=== PATIENT | male | born 1960 | race Caucasian/White ===

== ENCOUNTER 2022-11-19 01:06 | Day surgery (SDC) | payer BC, SELFPAY ==
[2022-11-16 15:00] VITALS: BMI 35.9
[2022-11-19] VITALS (15 sets, daily range): BP systolic 109–188; BP diastolic 68–91; PULSE 58–86; RESP 13–24; TEMP 36.6; O2SAT 96–99; BMI 35.9
[2022-11-19 07:41] LABS: Basophils Percent Auto 0.3 % (0.2-1.2); Eosinophils Absolute Auto 0.1 K/mm3 (0-0.3); Eosinophils Percent Auto 1.8 % (0-4.4); Hematocrit 44.3 % (42.0-52.0); Hemoglobin 15.4 g/dL (14.0-18.0); Immature Granulocyte Absolute 0.03 K/mm3 (0.00-0.031); Immature Granulocyte Percent A 0.4 % (0-0.5); Lymphocytes Absolute Auto 2.82 K/mm3 (0.9-3.2); Lymphocytes Percent Auto 41.2 % (18.3-44.2); Mean Corpuscular HGB Conc 34.8 g/dl (32-36); Mean Corpuscular Hemoglobin 30.2 pg (26-34); Mean Corpuscular Volume 86.9 fl (80-100); Monocytes Absolute Auto 0.7 K/mm3 (0.1-0.6); Monocytes Percent Auto 10.1 % (2.6-8.5); Neutrophils Absolute Auto 3.2 K/mm3 (1.3-6.7); Neutrophils Percent Auto 46.2 % (45.5-73.1); Platelet Count Result 174 k/mm3 (150-375); Red Cell Distribution Width 12.7 % (11.5-14.5); White Blood Count 6.8 K/mm3 (4.5-10.0)
[2022-11-19 07:54] LABS: Anion Gap 8 mmol/L (8-16); Blood Urea Nitrogen 17 mg/dL (9-20); Calcium 8.7 mg/dL (8.4-10.2); Carbon Dioxide 27 mmol/L (22-30); Chloride 103 mmol/L (98-107); Estimated CRCL calculation 133 ml/min; Estimated Glomerular Filt Rate > 60; Glucose 193 mg/dL (65-110); Potassium 3.8 mmol/L (3.4-5.0); Sodium 138 mmol/L (137-145)
--- NOTE | 2022-11-19 08:47 | WPDMODSED ---
Moderate Sedation Note-Pt Data Patient Data Diagnosis: exertional chest pain abnormal stress echo Present Complaint: 62-year-old with recent onset exertional dyspnea with chest pain Procedure to be performed/Plan: left heart catheterization Allergies Allergy/AdvReac Type Severity Reaction Status Date / Time No Known Allergies Allergy Mild Verified 11/19/22 07:23 Home Medications Medication Instructions Recorded Confirmed Type fish oil-dha-epa 1,200 mg-144 1 cap PO DAILY 11/16/22 11/16/22 History mg-216 mg capsule tirzepatide 2.5 mg/0.5 mL 2.5 mg subcut WEEKLY 11/16/22 11/16/22 History subcutaneous pen injector (Mounjaro) Current Medications: Active Medications Sodium Chloride (Normal Saline Iv) 500 mls @ 100 mls/hr IV CONT .Q5H [facility] Sedation/Anesthesia: No previous sedation/anesthesia problems (including family history). [facility] Social History Social History Smoking status: Never smoker Second hand tobacco smoke exposure: No Alcohol intake: current Alcohol use details: rarely, 12 pack a year Substance use: never Substance use type: does not use Living arrangements: with family Spiritual care concerns: No Mod Sed Physical Exam Physical Exam Pre Procedural Exam: Normal: Throat, Airway, Lungs, Heart Size, Heart Rate, Heart Rhythm, Neuro Exam and Extremities and Variation: Appearance ( overweight white male no apparent distress) Hours since solid foods: 12 Hours since liquid intake: 12 Mallampati Classification: class II Internal Medicine - PN: Obj Da Vital Signs Vital Signs: Vital Signs - 24 hr 11/19/22 07:30 Temperature 36.6 C Pulse Rate 62 Respiratory Rate 16 Blood Pressure 143/84 H Pulse Oximetry 97 Oxygen Delivery Room Air Meds/Results Medications: Active Medications Generic Name Dose Route Start Last Admin Trade Name Freq PRN Reason Stop Dose Admin Sodium Chloride 500 mls @ 100 mls/hr 11/19/22 07:00 Normal Saline Iv IV CONT .Q5H [facility] 11/19/22 07:26 11/19/22 07:26 Labs: Laboratory Results - last 24 hr 11/19/22 07:26 WBC 6.8 RBC 5.10 Hgb 15.4 Hct 44.3 MCV 86.9 MCH 30.2 MCHC 34.8 RDW 12.7 Plt Count 174 MPV 10.0 Immature Gran % (Auto) 0.4 Neut % (Auto) 46.2 Lymph % (Auto) 41.2 Fergus % (Auto) 10.1 H Eos % (Auto) 1.8 Baso % (Auto) 0.3 Lymph # (Auto) 2.82 Fergus # (Auto) 0.7 H Eos # (Auto) 0.1 Baso # (Auto) 0.0 Abs Immat Gran (auto) 0.03 Absolute Neuts (auto) 3.2 Absolute Nucleated RBC 0.0 Nucleated RBC % 0.0 Sodium 138 Potassium 3.8 Chloride 103 Carbon Dioxide 27 Anion Gap 8 BUN 17 Creatinine 0.60 L Estim Creat Clear Calc 133 Estimated GFR > 60 Glucose 193 H Calcium 8.7 ASA Classification/Sedation ASA Classification/Sedation ASA Class: III Emergent: No Risks: Risks, benefits and alternatives explained and patient/family accepted plan for sedation. Patient re-evaluated immediately prior to sedation.
--- NOTE | 2022-11-19 09:20 | WPDCARDPROC ---
Cardiac Cath Procedure Note Date of procedure:: 11/19/22 Performing physician:: Amrik Goss MD Indication:: recent onset exertional symptoms compatible with angina Brief clinical history:: this is a 62-year-old man without previous known coronary artery disease. He has been experiencing exertional chest pain with dyspnea for the last several weeks. Exercise stress test echo with echo in the office was significantly abnormal indicating anterior apical and apical inferior ischemia. For this reason an angiogram has been recommended. Procedure Procedure performed:: Left ventriculogram coronary angiogram Sedation/Medication given:: fentanyl 50 mg Versed 2 mg case start time 8:51 a.m. case end time 9:13 a.m. sedation provided by Marni Andrade RN, trained observer Access site:: right femoral artery Estimated blood loss:: 20 cc Procedure note:: patient was brought to the cardiac catheterization lab in the postabsorptive state where the right femoral triangle was prepped and draped in the normal fashion. Anesthesia was provided with 1% lidocaine infiltrated locally. Using the modified Seldinger technique the femoral artery was punctured and a 5 Uzbek vascular sheath placed. After this a 5 Uzbek angled pigtail catheter was used to measure left-sided hemodynamics and to inject LV g in the EUCEDA projection. Following this the right coronary artery was injected using a standard 5 Uzbek JR4 catheter. The left coronary artery was engaged and injected using a standard 5 Uzbek FL4 catheter. The cineangiograms were then reviewed and the case was terminated. The patient was taken to the holding area for manual sheath removal. The procedure was well tolerated and uncomplicated. There was no sign of groin hematoma when he left the cardiac catheterization lab. Findings:: Hemodynamics: Central aortic pressure is 110 over 56 left ventricle 110/2 end-diastolic pressure 16 there is no gradient pullback across the aortic valve. Left ventricle: The LV exhibits concentric hypertrophy and is normal in dimension. Contractility is well preserved in all segments the ejection fraction is 70% by visual estimation the left main coronary artery is medium in caliber does have some calcification but no significant stenosis is seen. The left anterior descending is a moderate the caliber artery extending down to the apex. The proximal 3rd of the LAD is significantly calcified. There is eccentric high-grade stenosis just past the ostium of the LAD which is either milder angiographically as much as 80% stenosis. The vessel again is significantly calcified in this segment. Further down there is a long moderate segment of 60-70% stenosis. In this segment the major diagonal is arising and has a ostial 90% lesion. The circumflex is a moderate caliber artery giving rise to the marginal branches. The 1st OM branch takes off very high as a ramus intermedius. This vessel has moderate diffuse disease in the proximal and midportions with about 70-80% stenosis. At the very distal portion of this 1st OM/ ramus is totally occluded. The 2nd OM branch is a bifurcating vessel in the midportion of the circumflex this 2nd OM is totally occluded. There is a posterior circumflex branch following the 2nd OM that has no significant disease. The right coronary artery is very large in caliber somewhat ectatic in appearance and dominant to the posterior circulation. The right coronary artery proper has mild diffuse luminal irregularities but no functionally significant disease. The RPL branches have mild diffuse disease Representing about 50-60% stenosis but no flow-limiting lesions are seen. Conclusion:: 1. right coronary dominant circulation with multivessel coronary artery disease as described above 2. lesion causing the patient's symptoms appear to be near ostial stenosis of significant calcified LAD also with moderate disease in
--- NOTE | 2022-11-19 09:47 | SUR.PHASEII ---
0945 Sheath removed and manual pressure applied.
[2022-11-19] MEDS: ACETAMINOPHEN 325 MG TABLET 650 MG PO (11:23)
== END 2022-11-19 15:05 | disposition home or self-care (01) ==
PROVIDERS: Visit Provider Specialist
PROC: 4A023N7 Measurement of Cardiac Sampling and Pressure, Left Heart, Percutaneous Approach (ICD-10-PCS; CPT 93452; principal; 2022-11-19 08:30)
DX: I25.10 Atherosclerotic heart disease of native coronary artery without angina pectoris (principal); R93.1 Abnormal findings on diagnostic imaging of heart and coronary circulation; R07.89 Other chest pain; Z79.85 Long-term (current) use of injectable non-insulin antidiabetic drugs
CPT/HCPCS: 36415; 80048; 85025; 93458; A9270; C1887; C1894; J1644; J2250; J3010; J7040

== ENCOUNTER 2022-11-21 09:42 | Emergency (ER) | payer BC, SELFPAY ==
[2022-11-21] VITALS (9 sets, daily range): BP systolic 113–156; BP diastolic 67–97; PULSE 54–62; RESP 14–19; TEMP 36.5–36.6; O2SAT 96–99
--- NOTE | ~2022-11-21 | XR_ITS ---
Clinical Indication: Chest pressure PA and lateral views of the chest: Comparison: 06/04/2006 Findings: The lungs are clear, without evidence of focal consolidation or pleural effusion. Cardiome diastinal silhouette is within normal limits. Bones and soft tissues are unremarkable. Impression: Normal chest. Reviewed, dictated and finalized at location . Impression: Normal chest.
--- NOTE | 2022-11-21 09:50 | ECG_ITS ---
Measurements Intervals [place] Rate: 55 P: 38 HI: 216 QRS: 11 QRSD: 97 T: 28 QT: 407 QTc: 392 Interpretive Statements SINUS BRADYCARDIA WITH FIRST DEGREE AV BLOCK BORDERLINE ECG NO PREVIOUS ECG AVAILABLE FOR COMPARISON Electronically Signed On 11-21-2022 11:50:55 CDT by Garry Coreas D.O.
[2022-11-21] MEDS: NITROGLYCERIN SL 0.4 MG TABLET SUBLINGUAL (10:17)
[2022-11-21] MEDS: ASPIRIN 81 MG CHEWABLE TABLET 324 MG PO (10:18)
[2022-11-21 10:21] LABS: Basophils Percent Auto 0.5 % (0.2-1.2); Eosinophils Absolute Auto 0.2 K/mm3 (0-0.3); Eosinophils Percent Auto 1.9 % (0-4.4); Hematocrit 44.9 % (42.0-52.0); Hemoglobin 15.7 g/dL (14.0-18.0); Immature Granulocyte Absolute 0.02 K/mm3 (0.00-0.031); Immature Granulocyte Percent A 0.3 % (0-0.5); Lymphocytes Absolute Auto 3.02 K/mm3 (0.9-3.2); Lymphocytes Percent Auto 39.2 % (18.3-44.2); Mean Corpuscular Hemoglobin 30.3 pg (26-34); Mean Corpuscular Volume 86.5 fl (80-100); Mean Platelet Volume 9.7 fl (7.4-10.4); Monocytes Absolute Auto 0.7 K/mm3 (0.1-0.6); Monocytes Percent Auto 8.4 % (2.6-8.5); Neutrophils Absolute Auto 3.8 K/mm3 (1.3-6.7); Neutrophils Percent Auto 49.7 % (45.5-73.1); Platelet Count Result 179 k/mm3 (150-375); Red Blood Count 5.19 M/mm3 (4.6-6.20); Red Cell Distribution Width 12.6 % (11.5-14.5); White Blood Count 7.7 K/mm3 (4.5-10.0)
[2022-11-21 10:31] LABS: Partial Thromboplastin Time 23.7 SECONDS (22.3-36.8); Prothrombin Time 13.6 Seconds (11.1-14.7)
[2022-11-21 10:43] LABS: Troponin I < 0.012 ng/mL (0.000-0.034)
[2022-11-21 11:10] LABS: Alanine Aminotransferase 34 U/L (6-50); Albumin Level 4.5 g/dL (3.5-5.1); Alkaline Phosphatase 70 U/L (38-126); Aspartate Amino Transferase 30 U/L (17-59); Bilirubin,Total 0.8 mg/dL (0.2-1.3); Blood Urea Nitrogen 17 mg/dL (9-20); Calcium 8.8 mg/dL (8.4-10.2); Carbon Dioxide 28 mmol/L (22-30); Estimated CRCL calculation 133 ml/min; Estimated Glomerular Filt Rate > 60; Glucose 170 mg/dL (65-110); Lipase 81 U/L (23-300)
[2022-11-21 11:11] LABS: Anion Gap 6 mmol/L (8-16); Chloride 102 mmol/L (98-107); Potassium 4.1 mmol/L (3.4-5.0); Sodium 136 mmol/L (137-145)
--- NOTE | 2022-11-21 11:43 | ED.CHESTPAIN ---
HPI - Chest Pain General Chief Complaint: Chest Pain Stated Complaint: chest pressure Time Seen by Provider: 11/21/22 10:00 History of Present Illness HPI narrative: Patient is a 62-year-old male who presents ER with chest pain. Describes as pressure in the center of his chest. Reports 7/10 this morning at 4:30 AM when it occurred. It is still 4/10 in intensity. No radiation to the shoulder/neck. Patient underwent stress testing recently that was grossly abnormal. When he had a left heart cath performed last week it showed extensive multivessel disease. Patient is currently scheduled to see cardiothoracic surgery at [facility] for further intervention. Patient cannot describe any aggravating or alleviating factors. He took a baby aspirin at home but received 3 additional baby aspirin's here. Related Data Home Medications Medication Instructions Recorded Confirmed fish oil-dha-epa 1,200 mg-144 1 cap PO DAILY 11/16/22 11/16/22 mg-216 mg capsule tirzepatide 2.5 mg/0.5 mL 2.5 mg subcut WEEKLY 11/16/22 11/16/22 subcutaneous pen injector (Mounjaro) Allergies Allergy/AdvReac Type Severity Reaction Status Date / Time No Known Allergies Allergy Mild Verified 11/21/22 10:09 Review of Systems Review of Systems: All systems reviewed & are unremarkable except as noted in HPI and below Constitutional: Constitutional: Denies chills, Denies fatigue and Denies fever(s) Cardiovascular: Cardiovascular: Reports chest pain, Denies rapid heart rate and Denies radiating jaw, neck or arm pain Respiratory: Respiratory: Denies cough, Denies dyspnea and Denies wheezing Gastrointestinal: Gastrointestinal: Denies abdominal pain, Denies nausea and Denies vomiting Musculoskeletal: Musculoskeletal: Reports no additional musculoskeletal complaints Integumentary/Breasts: Skin/Breast: Reports system reviewed and no additional complaints, except as docu Neurologic: Reports system reviewed and no additional complaints, except as documented PMFSH Past Medical History Medical History (Updated 11/21/22 @ 15:56 by Louie Cardona MD) History of left heart catheterization Hyperlipidemia Hypertension Surgical History Surgical History (Updated 11/21/22 @ 11:47 by Louie Cardona MD) No pertinent past surgical history Social History Social History Smoking status: Never smoker Second hand tobacco smoke exposure: No Alcohol intake: current Alcohol use details: rarely, 12 pack a year Substance use: never Substance use type: does not use Living arrangements: with family Spiritual care concerns: No Exam Narrative: GENERAL: Well-appearing, well-nourished, and in no acute distress. HEAD: Normocephalic, atraumatic. EYES: PERRL and EOMI. ENT: Mucous membranes moist. CHEST: Clear to auscultation. No respiratory distress. HEART: Regular rate and rhythm. No murmur heard. Normal peripheral pulses. ABDOMEN: Soft, nontender, nondistended. EXTREMITIES: Normal range of motion. No edema. SKIN: Warm, dry, no rash. NEURO: Alert and oriented x3. PSYCH: Normal mood and affect. Course Course Emergency Course: 1038: Contacted by patient's geoscientist Dr. Cerna. He would recommend the patient be transferred to [facility] as patient is supposed to follow-up with cardiothoracic surgery as he is going to need a coronary artery bypass graft to treat his known atherosclerotic heart disease. 1307: Prasad BRANCH ACCOUNT MANAGER accepts patient for Dr. Rodriguez. Patient aware of dx and tx plan and need for transfer. Vital Signs Vital signs: Vital Signs Temperature 97.8 F 11/21/22 10:00 Pulse Rate 61 11/21/22 10:00 Respiratory Rate 16 11/21/22 10:00 Blood Pressure 156/97 H 11/21/22 10:00 Pulse Oximetry 99 11/21/22 10:00 Oxygen Delivery Room Air 11/21/22 10:00 Temperature 97.7 F 11/21/22 13:14 Pulse Rate 62 11/21/22 17:08 Respiratory Rate 15 11/21/22 17:08 Blood Pressure 114/73
--- NOTE | 2022-11-21 13:28 | PC.NURSE ---
Called dietary at this time and ordered a lunch tray for pt per KELLEN Cardona.
[2022-11-21 14:10] LABS: Troponin I < 0.012 ng/mL (0.000-0.034)
[2022-11-21 16:45] LABS: Troponin I < 0.012 ng/mL (0.000-0.034)
--- NOTE | 2022-11-21 16:55 | PC.NURSE ---
This RN attempted to call [facility] to give nurse to nurse report for room 927, bed 1. After second wait of 10 mins, this RN called back to give [facility] phone number for report. [phone]
== END 2022-11-21 17:08 | disposition short-term general hospital (02) ==
PROVIDERS: Emergency Provider Emergency Medicine; PCP Family Medicine
DX: I20.0 Unstable angina (principal); I10 Essential (primary) hypertension; E78.5 Hyperlipidemia, unspecified; R00.1 Bradycardia, unspecified; I44.0 Atrioventricular block, first degree
CPT/HCPCS: 36415; 71046; 80053; 83690; 84484; 85025; 85610; 85730; 93005; 99285; A9270

== ENCOUNTER 2022-12-03 11:29 | Emergency (ER) | payer BC, SELFPAY ==
--- NOTE | ~2022-12-03 | XR_ITS ---
EXAMINATION: XR chest 2V DATE: 12/03/2022 12:37 INDICATION: Chest pain and shortness of breath TECHNIQUE: frontal and lateral views of the chest were obtained. COMPARISON: Chest radiograph dated 11/21/2022 FINDINGS: Primarily linear and bandlike opacities in bilateral lower lung zones which favors atelectasis/scarri ng over pneumonia. No pulmonary edema, pleural effusion or pneumothorax. The cardiomediastinal silhou ette is normal. Median sternotomy wires and plates and screws and surgical clips the mediastinum cons istent with prior coronary artery bypass grafting. Moderate thoracic spondylosis. IMPRESSION: 1. Primarily linear and bandlike opacities in the bilateral lower lung zones which favors atelectasis /scarring over pneumonia. Reviewed, dictated and finalized at location A. IMPRESSION: 1. Primarily linear and bandlike opacities in the bilateral lower lung zones wh ich favors atelectasis/scarring over pneumonia.
--- NOTE | ~2022-12-03 | CT_ITS ---
EXAMINATION: CTA chest PE protocol DATE: 12/03/2022 14:04 INDICATION: Chest pain and shortness of breath TECHNIQUE: Computed tomography (CT) pulmonary angiogram of the chest was performed with 100 mL Omnipa que-350 intravenous contrast. Additional 3D reconstructions utilizing coronal maximum intensity proje ction (MIP) were performed. Automated exposure control and iterative reconstruction technique were em ployed. The dose-length product was 1041.00 mGy-cm. COMPARISON: None FINDINGS: Good contrast opacification of the pulmonary arteries. There is mild streak artifact from dense contr ast in the superior vena cava and right atrium as well as from median sternotomy wires and plate-scre w fixation. There is scattered respiratory motion artifact most prominent at the lung bases where it decreases sensitivity in the smaller subsegmental pulmonary arteries. No evident pulmonary embolism. Dependent predominant small left and tiny right pleural effusions with component of the left pleural effusion tracking along the posterior superior aspect of the left major fissure. Dependent atelectasi s in bilateral lower lobes along with more linear bands of discoid atelectasis in the bilateral lower lobes and lingula. No pulmonary edema or pneumothorax. Cardiomegaly. No pericardial effusion. Athero sclerotic coronary artery calcific lesions and change of prior coronary artery bypass grafting. Thora cic aorta is normal in caliber with no dissection. No pathologically enlarged thoracic lymphadenopath y. Visualized upper abdomen is unremarkable. Chronic mild likely physiologic anterior wedging at T12 and L1. Moderate thoracic and moderate to severe lower cervical spondylosis. IMPRESSION: 1. No pulmonary embolism. Sensitivity decreased in the smaller subsegmental pulmonary arteries in the bilateral lower lungs due to primarily to moderate amount of respiratory motion at the lung bases. 2. Small left and tiny right pleural effusions with scattered discoid and dependent atelectasis in bi lateral lower lobes and lingula. 3. Cardiomegaly. Reviewed, dictated and finalized at location A. IMPRESSION: 1. No pulmonary embolism. Sensitivity decreased in the smaller subsegmental pul monary arteries in the bilateral lower lungs due to primarily to moderate amoun t of respiratory motion at the lung bases. 2. Small left and tiny right pleural effusions with scattered discoid and depen dent atelectasis in bilateral lower lobes and lingula. 3. Cardiomegaly.
[2022-12-03 11:39] VITALS: BP 140/75; PULSE 75; RESP 18; TEMP 36.8; O2SAT 99
[2022-12-03 11:45] VITALS: PULSE 78; O2SAT 100
--- NOTE | 2022-12-03 11:45 | ECG_ITS ---
Measurements Intervals [place] Rate: 77 P: 24 VA: 187 QRS: 16 QRSD: 88 T: 132 QT: 358 QTc: 407 Interpretive Statements SINUS RHYTHM NONSPECIFIC T-WAVE ABNORMALITY BORDERLINE ECG COMPARED TO ECG 11/21/2022 09:54:29 MILD T-WAVE FLATTENING IS NOTED Electronically Signed On 12-03-2022 13:41:32 CDT by Amrik Goss M.D.
[2022-12-03 11:47] VITALS: BP 145/77; PULSE 77; RESP 20; O2SAT 100
[2022-12-03 12:54] LABS: Basophils Absolute Auto 0.1 K/mm3 (0.0-0.1); Basophils Percent Auto 0.4 % (0.2-1.2); Eosinophils Absolute Auto 0.3 K/mm3 (0-0.3); Hematocrit 38.9 % (42.0-52.0); Hemoglobin 12.5 g/dL (14.0-18.0); Immature Granulocyte Absolute 0.09 K/mm3 (0.00-0.031); Immature Granulocyte Percent A 0.6 % (0-0.5); Lymphocytes Absolute Auto 2.99 K/mm3 (0.9-3.2); Lymphocytes Percent Auto 18.8 % (18.3-44.2); Mean Corpuscular HGB Conc 32.1 g/dl (32-36); Mean Corpuscular Hemoglobin 29.7 pg (26-34); Mean Corpuscular Volume 92.4 fl (80-100); Mean Platelet Volume 9.3 fl (7.4-10.4); Monocytes Absolute Auto 1.5 K/mm3 (0.1-0.6); Monocytes Percent Auto 9.3 % (2.6-8.5); Neutrophils Percent Auto 68.9 % (45.5-73.1); Platelet Count Result 399 k/mm3 (150-375); Red Blood Count 4.21 M/mm3 (4.6-6.20); Red Cell Distribution Width 13.2 % (11.5-14.5); White Blood Count 15.9 K/mm3 (4.5-10.0)
[2022-12-03 13:03] LABS: Alanine Aminotransferase 75 U/L (6-50); Alkaline Phosphatase 77 U/L (38-126); Anion Gap 10 mmol/L (8-16); Aspartate Amino Transferase 28 U/L (17-59); Bilirubin,Total 0.7 mg/dL (0.2-1.3); Blood Urea Nitrogen 13 mg/dL (9-20); Calcium 8.8 mg/dL (8.4-10.2); Carbon Dioxide 25 mmol/L (22-30); Chloride 102 mmol/L (98-107); Estimated CRCL calculation 132 ml/min; Estimated Glomerular Filt Rate > 60; Glucose 138 mg/dL (65-110); Potassium 4.3 mmol/L (3.4-5.0); Sodium 137 mmol/L (137-145)
[2022-12-03 13:06] LABS: INR 1.1; Prothrombin Time 14.2 Seconds (11.1-14.7)
[2022-12-03 13:07] LABS: Partial Thromboplastin Time 27.7 SECONDS (22.3-36.8)
--- NOTE | 2022-12-03 13:12 | ED.SOB ---
HPI - SOB/Dyspnea General Chief Complaint: Shortness of Breath/Dyspnea Stated Complaint: SOB/recent open heart surgery Time Seen by Provider: 12/03/22 12:40 History of Present Illness HPI Narrative: Patient is a 62-year-old male with a history of CAD status post CABG presenting with shortness of breath. Patient states that he is just over a week out from having bypass surgery at [facility]. States he was able to go home after 3 days in the hospital and has been doing pretty well. He has been getting up to walk regularly lately. States that he woke up in the middle of the night and was feeling short of breath. States that it feels difficult to take a full breath. States that it causes pain across his chest. He called his cardiothoracic surgeon who advised that he come to the closest ER. He denies fevers or chills, nasal congestion, sore throat, nausea or vomiting, diarrhea, leg swelling. Reports intermittent cough. Related Data Home Medications Medication Instructions Recorded Confirmed fish oil-dha-epa 1,200 mg-144 1 cap PO DAILY 11/16/22 11/16/22 mg-216 mg capsule tirzepatide 2.5 mg/0.5 mL 2.5 mg subcut WEEKLY 11/16/22 11/16/22 subcutaneous pen injector ([email or web address]) Allergies Allergy/AdvReac Type Severity Reaction Status Date / Time No Known Allergies Allergy Mild Verified 12/03/22 11:44 Review of Systems Review of Systems: All systems reviewed & are unremarkable except as noted in HPI and below PMFSH Past Medical History Medical History History of left heart catheterization Hyperlipidemia Hypertension Surgical History Surgical History No pertinent past surgical history Social History Social History Smoking status: Never smoker Second hand tobacco smoke exposure: No Alcohol intake: current Alcohol use details: rarely, 12 pack a year Substance use: never Substance use type: does not use Living arrangements: with family Spiritual care concerns: No Exam Narrative: GENERAL: In no acute distress, pleasant and cooperative HEAD: Normocephalic, atraumatic. EYES: PERRLA and EOMI. ENT: Mucous membranes moist. NECK: Supple. CHEST: Clear to auscultation. No respiratory distress. Midline well-healing incision anterior chest wall with clean bandage in place HEART: Regular rate and rhythm. No murmur heard ABDOMEN: Soft, nontender, nondistended EXTREMITIES: Normal range of motion. No edema. SKIN: Warm, dry, no rash. NEURO: Alert and oriented x3. PSYCH: Normal mood and affect. Course Vital Signs Vital signs: Vital Signs Temperature 98.2 F 12/03/22 11:39 Pulse Rate 75 12/03/22 11:39 Respiratory Rate 18 12/03/22 11:39 Blood Pressure 140/75 12/03/22 11:39 Pulse Oximetry 99 12/03/22 11:39 Oxygen Delivery Room Air 12/03/22 11:39 Temperature 98.2 F 12/03/22 11:39 Pulse Rate 73 12/03/22 17:25 Respiratory Rate 118 H 12/03/22 17:25 Blood Pressure 133/85 12/03/22 17:25 Pulse Oximetry 98 12/03/22 17:25 Oxygen Delivery Room Air 12/03/22 11:45 MDM - SOB/Dyspnea MDM Narrative Medical decision making narrative: 62-year-old male presenting with shortness of breath in the setting of CABG just over a week ago. Vital stable. EKG per my interpretation shows normal sinus rhythm, normal axis and intervals, no ST elevations or depressions. Blood work with white count of 15.9. Troponins are undetectable. Negative for COVID-19. Spoke with Dr. Herman with [facility] cardiothoracic surgery. They state that the work-up is reassuring they feel that he is safe for discharge which I think is reasonable. They state that sometimes CABG patients will have exacerbations of their postoperative pain and to encourage him to use his narcotics. Patient states that he has not been using th
[2022-12-03 13:13] VITALS: BP 125/64; PULSE 80; RESP 20; O2SAT 98
[2022-12-03 13:14] LABS: NT Pro B Type Natriuretic Pept 239 pg/mL (19.9-100); Troponin I < 0.012 ng/mL (0.000-0.034)
[2022-12-03 16:01] LABS: Troponin I < 0.012 ng/mL (0.000-0.034)
[2022-12-03 16:09] LABS: Influenza A QL RT-PCR Negative (Negative); Influenza B QL RT-PCR Negative (Negative); SARS-CoV-2 RNA PCR Negative (Negative)
[2022-12-03 16:12] VITALS: BP 123/71; PULSE 92; RESP 18; O2SAT 96
[2022-12-03] MEDS: oxyCODONE/ACETAMINOPHEN (*CRX) 5-325 MG TABLET 1 TABLET PO (16:42)
[2022-12-03 16:51] LABS: Appearance Urine Clear (Clear); Bilirubin Urine Negative (Negative); Blood Urine Negative (Negative); Color Urine Yellow (Yellow); Glucose Urine UA Negative (Negative); Ketones Urine 1+ mg/dL (Negative); Leukocyte Esterase Ur Negative LEU/UL (Negative); Nitrate Urine Negative (Negative); Protein Urine Negative (Negative); pH Urine 7.5 (5.0-9.0)
[2022-12-03 16:57] LABS: Specific Grav Ur 1.061 (1.001-1.035)
[2022-12-03 16:58] LABS: Add Urine Microscopic? NO
[2022-12-03 17:25] VITALS: BP 133/85; PULSE 73; RESP 118; O2SAT 98
== END 2022-12-03 17:26 | disposition home or self-care (01) ==
PROVIDERS: General Practice; Emergency Provider Emergency Medicine; PCP Family Medicine
DX: R06.02 Shortness of breath (principal); G89.18 Other acute postprocedural pain; I10 Essential (primary) hypertension; E78.5 Hyperlipidemia, unspecified
CPT/HCPCS: 36415; 71046; 71275; 80053; 81003; 83880; 84484; 85025; 85610; 85730; 87636; 93005; 99284; A9270; Q9967

== ENCOUNTER 2023-02-14 09:45 | Outpatient (RCR) | payer BC, SELFPAY ==
[2023-01-18 09:49] VITALS: PULSE 85
== END 2023-02-20 16:40 | disposition home or self-care (01) ==
LOC: ANHCPREHAB 09:45
PROVIDERS: PCP Family Medicine; Visit Provider Specialist
DX: Z95.1 Presence of aortocoronary bypass graft (principal)
CPT/HCPCS: 93798

== ENCOUNTER 2023-05-17 20:40 | Emergency (ER) | payer MEDICARE, SELFPAY ==
[2023-05-17] VITALS (9 sets, daily range): BP systolic 149–168; BP diastolic 69–77; PULSE 75–82; RESP 16–26; O2SAT 92–99
--- NOTE | ~2023-05-17 | XR_ITS ---
EXAMINATION: XR chest 2V 05/17/2023 21:11 INDICATION: High potassium PROCEDURE: 2 view chest COMPARISON: 12/03/2022 FINDINGS: There is right basilar subsegmental atelectasis. Status post median sternotomy for CABG. Th e cardiomediastinal silhouette is within normal limits. There are no pleural effusions. There is no pneumothorax suspected. IMPRESSION: 1: Right basilar atelectasis. Reviewed, dictated and finalized at location A.
--- NOTE | 2023-05-17 20:44 | ECG_ITS ---
Measurements Intervals [place] Rate: 78 P: 74 DC: 200 QRS: 9 QRSD: 94 T: 39 QT: 370 QTc: 422 Interpretive Statements SINUS RHYTHM POSSIBLE LEFT ATRIAL ENLARGEMENT BORDERLINE AV CONDUCTION DELAY INCOMPLETE RIGHT BUNDLE BRANCH BLOCK NONSPECIFIC ST & T-WAVE ABNORMALITY- INF/LAT LEADS BASELINE WANDER- V1 BORDERLINE ECG COMPARED TO ECG 12/03/2022 11:43:49 NO SIGNIFICANT CHANGES Electronically Signed On 05-18-2023 7:46:24 CDT by Garry Coreas D.O.
[2023-05-17 20:57] LABS: Basophils Percent Auto 0.4 % (0.2-1.2); Eosinophils Absolute Auto 0.2 K/mm3 (0-0.3); Eosinophils Percent Auto 2.6 % (0-4.4); Hematocrit 44.6 % (42.0-52.0); Hemoglobin 15.6 g/dL (14.0-18.0); Immature Granulocyte Absolute 0.02 K/mm3 (0.00-0.031); Immature Granulocyte Percent A 0.2 % (0-0.5); Lymphocytes Absolute Auto 3.09 K/mm3 (0.9-3.2); Lymphocytes Percent Auto 36.3 % (18.3-44.2); Mean Corpuscular Hemoglobin 29.7 pg (26-34); Mean Corpuscular Volume 84.8 fl (80-100); Mean Platelet Volume 10.6 fl (7.4-10.4); Monocytes Absolute Auto 0.7 K/mm3 (0.1-0.6); Monocytes Percent Auto 8.5 % (2.6-8.5); Neutrophils Absolute Auto 4.4 K/mm3 (1.3-6.7); Platelet Count Result 186 k/mm3 (150-375); Red Blood Count 5.26 M/mm3 (4.6-6.20); Red Cell Distribution Width 13.4 % (11.5-14.5); White Blood Count 8.5 K/mm3 (4.5-10.0)
[2023-05-17 21:00] LABS: Appearance Urine Clear (Clear); Bilirubin Urine Negative (Negative); Blood Urine Negative (Negative); Color Urine Yellow (Yellow); Glucose Urine UA 3+ mg/dL (Negative); Ketones Urine Trace mg/dL (Negative); Leukocyte Esterase Ur Negative LEU/UL (Negative); Nitrate Urine Negative (Negative); Protein Urine Negative (Negative); Specific Grav Ur 1.026 (1.001-1.035)
--- NOTE | 2023-05-17 21:01 | ED.RECABL ---
HPI - Recheck/Abnormal Lab/Rx General Chief Complaint: Recheck/Abnormal Lab/Rx Stated Complaint: high potassium Time Seen by Provider: 05/17/23 20:51 Source: patient Mode of arrival: ambulatory Limitations: no limitations History of Present Illness HPI narrative: Patient is a 63 y/o male who presents to the ED with c/o abnormal labs. Patient reports having routine outpatient blood work drawn yesterday. He was contacted by his primary care doctor's office this morning and told to come to the ED immediately as his potassium was elevated to 6.3. Patient denies previous history of potassium issues. He states he has been dealing with intermittent diffuse abdominal discomfort over the last 1.5 weeks, but has otherwise been in his normal state of health. Reports intermittent nausea, denies vomiting. Denies diarrhea/constipation. Reports multiple bowel movements per day. He states he was recently taken off of his Mounjaro for his DM due to supply issues. He is supposed to be starting Ozempic soon. Does not check his BG. Denies fevers. Denies urinary complaints. Denies chest pain, shortness breath. Related Data Home Medications Medication Instructions Recorded Confirmed fish oil-dha-epa 1,200 mg-144 1 cap PO DAILY 11/16/22 11/16/22 mg-216 mg capsule tirzepatide 2.5 mg/0.5 mL 2.5 mg subcut WEEKLY 11/16/22 11/16/22 subcutaneous pen injector (Mounjaro) Allergies Allergy/AdvReac Type Severity Reaction Status Date / Time No Known Allergies Allergy Mild Verified 12/03/22 11:44 Review of Systems Review of Systems: CONSTITUTIONAL: Denies fever, chills, or sweats. CARDIOVASCULAR: Denies chest pain, palpitations, or edema. RESPIRATORY: Denies cough or dyspnea. GASTROINTESTINAL: See HPI. GENITOURINARY: Denies dysuria or hematuria. All systems reviewed & are unremarkable except as noted in HPI and below PMFSH Past Medical History Medical History History of left heart catheterization Hyperlipidemia Hypertension Surgical History Surgical History (Updated 05/18/23 @ 04:23 by Joan William PA-C) Hx of CABG No pertinent past surgical history Family History Family History Sibling Hypertension Diabetes mellitus Breast cancer High cholesterol Grandparent Heart disease Social History Social History Smoking status: Never smoker Second hand tobacco smoke exposure: No Alcohol intake: current Alcohol use details: rarely, 12 pack a year Substance use: never Substance use type: does not use Living arrangements: with family Spiritual care concerns: No Exam Narrative: GENERAL: Well appearing, obese with BMI 36.2, non-toxic, in no acute distress. HEAD: Normocephalic, atraumatic. RESPIRATORY: Airway patent, respirations nonlabored. Clear to auscultation bilaterally, no rales, rhonchi, wheezing. CARDIOVASCULAR: Regular rate and rhythm without murmurs, rubs, or gallops. ABDOMINAL: Soft, no significant focal tenderness throughout abdomen, nondistended. Normoactive BS. MUSCULOSKELETAL: Moves all extremities. No gross deformities. SKIN: Warm, dry, normal color. Midsternal surgical scar. NEURO: A&O X3. Speech clear. Cranial nerves II-XII grossly intact. Steady gait. No ataxic movements. PSYCHIATRIC: Appropriate mood and affect. Normal interaction. Course Vital Signs Vital signs: Vital Signs Respiratory Rate 19 05/17/23 20:47 Pulse Oximetry 99 05/17/23 20:47 Pulse Rate 81 05/17/23 22:00 Respiratory Rate 19 05/17/23 22:00 Blood Pressure 149/69 H 05/17/23 21:32 Pulse Oximetry 98 05/17/23 22:00 MDM - Recheck/Abnormal Lab/Rx MDM Narrative Medical decision making narrative: Patient presented to ED with concern for hyperkalemia found on outpatient laboratory testing yeste
[2023-05-17 21:05] LABS: Add Urine Microscopic? NO
[2023-05-17 21:07] LABS: Prothrombin Time 13.1 Seconds (11.1-14.7)
[2023-05-17 21:08] LABS: Alanine Aminotransferase 33 U/L (6-50); Albumin Level 4.5 g/dL (3.5-5.1); Alkaline Phosphatase 146 U/L (38-126); Anion Gap 7 mmol/L (8-16); Aspartate Amino Transferase 32 U/L (17-59); Bilirubin,Total 0.9 mg/dL (0.2-1.3); Blood Urea Nitrogen 19 mg/dL (9-20); Calcium 9.1 mg/dL (8.4-10.2); Carbon Dioxide 26 mmol/L (22-30); Chloride 105 mmol/L (98-107); Estimated CRCL calculation 156 ml/min; Estimated Glomerular Filt Rate > 60; Glucose 374 mg/dL (65-110); Lipase 113 U/L (23-300); Partial Thromboplastin Time 25.4 Seconds (22.3-36.8); Sodium 138 mmol/L (137-145)
[2023-05-17 21:13] LABS: Magnesium 2.1 mg/dL (1.6-2.3)
[2023-05-17] MEDS: SODIUM CHLORIDE 0.9% IV 1,000 ML 999 ML IV CONT (21:18)
[2023-05-17 21:19] LABS: Troponin I < 0.012 ng/mL (0.000-0.034)
== END 2023-05-17 22:35 | disposition home or self-care (01) ==
PROVIDERS: Emergency Medicine; Emergency Provider Physician Assistant; PCP Family Medicine
DX: E11.65 Type 2 diabetes mellitus with hyperglycemia (principal); R10.9 Unspecified abdominal pain; E78.5 Hyperlipidemia, unspecified; I10 Essential (primary) hypertension; Z95.1 Presence of aortocoronary bypass graft; Z79.82 Long term (current) use of aspirin; Z79.85 Long-term (current) use of injectable non-insulin antidiabetic drugs; R94.31 Abnormal electrocardiogram [ECG] [EKG]; I45.10 Unspecified right bundle-branch block
CPT/HCPCS: 36415; 71046; 80053; 83690; 83735; 84484; 85025; 85610; 85730; 93005; 96360; 99284; J7030

== ENCOUNTER 2024-12-24 08:48 | Outpatient (CLI) | payer MEDICARE, SELFPAY ==
--- NOTE | ~2024-12-24 | CT_ITS ---
EXAMINATION: CT IAC/mastoids BI wo con DATE: 12/24/2024 09:17 INDICATION: Sensorineural hearing loss, unilateral, left ear. TECHNIQUE: Computed tomography (CT) of the temporal bones was performed without intravenous contrast. Automated exposure control and iterative reconstruction technique were employed. The dose-length product was 385.59 mGy-cm. COMPARISON: CT 07/12/2004 FINDINGS: RIGHT TEMPORAL BONE: The internal auditory canal, cochlea, vestibule, semicircular canals, vestibular aqueduct, carotid canal, jugular bulb, facial nerve course, ossicles, Prussak space, scutum, tympanic membrane, and mastoid air cells are normal. There is mild wall thickening of the right external auditory canal. LEFT TEMPORAL BONE: The internal auditory canal, cochlea, vestibule, semicircular canals, vestibular aqueduct, jugular bulb, carotid canal, facial nerve course, and ossicles are normal. There is material in Prussak space that is contiguous with thickening of the tympanic membrane and material in the external auditory canal. The mastoid air cells are normal. IMPRESSION: 1. Material in left Prussak space that is contiguous with thickening of the left tympanic membrane and material in the left external auditory canal. This finding is indeterminate for cholesteatoma. Reviewed, dictated and finalized at location E. IMPRESSION: 1. Material in left Prussak space that is contiguous with thickening of the lef t tympanic membrane and material in the left external auditory canal. This find ing is indeterminate for cholesteatoma.
== END 2024-12-24 08:49 | disposition home or self-care (01) ==
PROVIDERS: PCP Family Medicine; Visit Provider Otolaryngology
DX: H90.42 Sensorineural hearing loss, unilateral, left ear, with unrestricted hearing on the contralateral side (principal)
CPT/HCPCS: 70480